=== PATIENT | male | born 1955 ===

== ENCOUNTER 2024-02-10 06:25 | Day surgery (SDC) | payer OTHER ==
[~2024-02-10] VITALS: Ht 172.7 cm; Wt 80.7 kg
[~2024-02-10 06:25] MED LIST: CHILDREN'S ASPI81 MG PO; ENALAPRIL MALEA10 MG PO; GLEEVEC400 MG PO; LIPITOR20 MG PO
[2024-02-10] MEDS ORDERED: CEFAZOLIN SODIUM 1,000 MG VIAL IV ONE (08:45)
== END 2024-02-10 10:50 | disposition home or self-care (01) ==
LOC: CIR.AMB 06:25
PROVIDERS: ATTEND Surgery Surgery of the Hand
DX: M67.843 Other specified disorders of tendon, right hand (principal); Z91.013 Allergy to seafood; E78.00 Pure hypercholesterolemia, unspecified; I10 Essential (primary) hypertension; I25.10 Atherosclerotic heart disease of native coronary artery without angina pectoris